=== PATIENT | female | born 1965 | race Caucasian/White ===

== ENCOUNTER 2017-07-26 22:11 | Emergency (ER) | payer OTHER ==
[2017-07-26 23:13] LABS: Urine Blood NEGATIVE (NEG); Urine Glucose NEGATIVE (NEG); Urine Protein NEGATIVE (NEG)
[2017-07-26 23:41] LABS: Absolute Lymphocytes (CBC) 2.3 K/uL (0.7-4.9); Absolute Monocytes 0.8 K/uL (0.1-1.3); Absolute Neutrophil 6.2 K/uL (1.8-8.0); Basophils % 0.5 % (0-1.3); Eosinophils % 2.7 % (0-4.4); Hematocrit 40.4 % (36.0-45.0); Lymphocytes % 23.8 % (15.3-44.8); MCH 29.9 pg (27.0-35.0); MCV 87.9 fL (80-100); MPV 11.2 fL (7.6-11.3); Monocytes % 8.1 % (3.3-12.3)
[2017-07-26 23:56] LABS: Potassium 3.8 mEq/L (3.6-5.0)
[2017-07-27 00:02] LABS: Albumin 4.4 g/dL (3.2-5.5); Bilirubin Direct 0.1 mg/dL (0-0.2); Bilirubin Total 0.6 mg/dL (0.3-1.2); Protein, Total 7.5 g/dL (6.0-8.3)
[2017-07-27] MEDS ORDERED: levoFLOXacin 500 MG TAB ONE (01:17)
[2017-07-27] MEDS ORDERED: metroNIDAZOLE 500 MG TABLET ONE (01:17)
--- NOTE | 2017-07-27 01:40 | EDPHYS ---
Physician Documentation [facility] Name: Demi Doty Age: 51 yrs Sex: Female : 1965 Arrival Date: 07/26/2017 Time: 22:15 Bed 24 Private MD: Diann Quinones ED Physician Stephen Escobar HPI: 07/27 01:42 This 51 yrs old Female presents to ER via Ambulatory with complaints of Flank tw4 Pain. 01:42 The patient presents with abdominal pain. Onset: The symptoms/episode began/occurred tw4 yesterday. The symptoms do not radiate. Associated signs and symptoms: none. The symptoms are described as dull. Modifying factors: The symptoms are alleviated by nothing, the symptoms are aggravated by nothing. The patient has not experienced similar symptoms in the past. 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 - Social history:: Smoking status: Patient/guardian denies using tobacco, never smoked. - Ebola Screening: : Patient denies travel to an Ebola-affected area in the 21 days before illness onset No symptoms or risks identified at this time. ROS: 07/27 01:42 Constitutional: Negative for fever, chills, and weight loss, Cardiovascular: Negative tw4 for chest pain, palpitations, and edema, Respiratory: Negative for shortness of breath, cough, wheezing, and pleuritic chest pain, Abdomen/GI: Negative for abdominal pain, nausea, vomiting, diarrhea, and constipation, MS/Extremity: Negative for injury and deformity, Skin: Negative for injury, rash, and discoloration, Neuro: Negative for headache, weakness, numbness, tingling, and seizure. Exam: 01:43 Constitutional: This is a well developed, well nourished patient who is awake, alert, tw4 and in no acute distress. Head/Face: Normocephalic, atraumatic. Chest/axilla: Normal chest wall appearance and motion. Nontender with no deformity. No lesions are appreciated. Cardiovascular: Regular rate and rhythm with a normal S1 and S2. No gallops, murmurs, or rubs. Normal PMI, no JVD. No pulse deficits. Respiratory: Lungs have equal breath sounds bilaterally, clear to auscultation and percussion. No rales, rhonchi or wheezes noted. No increased work of breathing, no retractions or nasal flaring. Abdomen/GI: Soft, non-tender, with normal bowel sounds. No distension or tympany. No guarding or rebound. No evidence of tenderness throughout. MS/ Extremity: Pulses equal, no cyanosis. Neurovascular intact. Full, normal range of motion. Neuro: Awake and alert, GCS 15, oriented to person, place, time, and situation. Cranial nerves II-XII grossly intact. Motor strength 5/5 in all extremities. Sensory grossly intact. Cerebellar exam normal. Normal gait. Vital Signs: 07/26 22:50 BP 147 / 84; Pulse 97; Resp 18; Temp 98.6; Pulse Ox 99% ; Weight 128.37 kg; Height 5 tl3 ft. 5 in. (165.10 cm); 07/27 00:00 BP 112 / 68; Pulse 78; Resp 20; Temp 98.1(O); Pulse Ox 100% on R/A; Pain 0/10; eb1 01:09 BP 112 / 50; Pulse 88; Resp 20; Pulse Ox 98% ; Pain 3/10; eb1 07/26 22:50 Body Mass Index 47.09 (128.37 kg, 165.10 cm) tl3 MDM: 07/26 23:26 Patient medically screened. [facility] 07/27 01:43 Data reviewed: vital signs, nurses notes. Counseling: I had a detailed discussion with [facility] the patient and/or guardian regarding: the historical points, exam findings, and any diagnostic results supporting the discharge/admit diagnosis. Special discussion: I discussed with the patient/guardian in detail that at this point there is no indication for admission to the hospital. It is understood, however, that if the symptoms persist or worsen the patient needs to return immediately for re-evaluation. 07/26 23:06 Order name: Amylase, Serum; Complete Time: 00:44 [facility] 07/27 00:44 Interpretation: Within normal limits: SONIA 44. [facility] 07/26 23:06 Order name: Basic Metabolic Panel; Complete Time: 00:44 [facility] 07/27 00:44 Interpretation: Normal except: GFR 83. tw 07/26 23:06 Order name: CBC with Diff; Complete Time: 00:44 tw4 07/27 00:44 Interpretation: Within normal limits. [facility] 07/26 23:06 Order name: Creatinine for Radiology; Complete Time: 00:44 tw 07/26 23:06 Order name: Hepatic Function; Complete Time: 00:44 tw4 07/27 00:44 Interpretation: Within normal limits. tw 07/26 23:06 Order name: Lipase; Complete Time: 00:44 tw 07/27 00:45 Interpretation: Within normal limits: LIP 22. tw 07/26 23:06 Order name: IV Saline Lock; Complete Time: 23:42 tw 07/26 23:06 Order name: Labs collected and sent; Complete Time: 23:26 [facility] 07/26 23:09 Order name: Urine Dipstick-Ancillary; Complete Time: 00:44 [facility] 07/27 00:01 Order name: CT Stone Protocol [facility] 07/26 23:06 Order name: Urine Dipstick-Ancillary (obtain specimen); Complete Time: 23:26 tw4 Administered Medications: 01:28 Drug: Flagyl 500 mg Route: PO; eb1 01:42 Follow up: Response: No adverse reaction eb1 01:28 Drug: LevaQUIN 500 mg Route: PO; eb1 01:41 Follow up: Response: No adverse reaction eb1 Disposition: 07/27/17 01:40 Discharged to Home. Impression: Diverticular disease of large intestine without perforation or abscess. - Condition is Stable. - Discharge Instructions: Diverticulitis, [id number]. - Prescriptions for Cipro 500 mg Oral Tablet - take 1 tablet by ORAL route every 12 hours for 10 days; 20 tablet. Flagyl 500 mg Oral Tablet - take 1 tablet by ORAL route every 12 hours for 7 days; 14 tablet. - Medication Reconciliation Form, Thank You Letter, Antibiotic Education, Prescription Opioid Use form. - Follow up: Diann Quinones MD; When: As needed; Reason: Recheck today's complaints, Continuance of care, Re-evaluation by your physician. - Problem is new. - Symptoms have improved. Signatures: Dispatcher [employer] Stephen Petit MD MD tw4 Whitney Wilson RN RN tl3 Amanda Georges, RN RN eb1 Corrections: (The following items were deleted from the chart) 01:55 01:40 07/27/2017 01:40 Discharged to Home. Impression: Diverticular disease of large eb1 intestine without perforation or abscess. Condition is Stable. Forms are Medication Reconciliation Form, Thank You Letter, Antibiotic Education, Prescription Opioid Use. Follow up: Na Quinones; When: As needed; Reason: Recheck today's complaints, Continuance of care, Re-evaluation by your physician. Problem is new. Symptoms have improved. tw4
--- NOTE | 2017-07-27 01:40 | ER ---
Nurse's Notes [facility] Name: Demi Doty Age: 51 yrs Sex: Female : 1965 Arrival Date: 07/26/2017 Time: 22:15 Bed 24 Private MD: Diann Quinones Diagnosis: Diverticular disease of large intestine without perforation or abscess Presentation: 07/26 22:47 Presenting complaint: Patient states: pt states that she started having abdominal tl3 cramping yesterday, kept feeling like she had to have a BM, tonight the pain is radiating to the right side, no vomiting, nausea or diarrhea, no fever. Transition of care: patient was not received from another setting of care. Onset of symptoms was July 25, 2017. Risk Assessment: Do you want to hurt yourself or someone else? Patient reports no desire to harm self or others. Initial Sepsis Screen: Does the patient meet any 2 criteria? No. Patient's initial sepsis screen is negative. Does the patient have a suspected source of infection? No. Patient's initial sepsis screen is negative. Care prior to arrival: None. 22:47 Method Of Arrival: Ambulatory tl3 22:47 Acuity: HERNAN 3 tl3 Triage Assessment: 22:50 General: Appears uncomfortable, Behavior is cooperative, appropriate for age. Pain: tl3 Pain currently is 5 out of 10 on a pain scale. [employer] [employer]: 22:50 LMP 07/09/2017 tl3 Historical: - Allergies: 22:50 NKA; tl3 - Home Meds: 22:50 Diovan Oral [Active]; Synthroid Oral [Active]; tl3 - PMHx: 22:50 Hypertension; Hypothyroidism; tl3 - Immunization history:: Adult Immunizations up to date. - Social history:: Smoking status: Patient/guardian denies using tobacco, never smoked. - Ebola Screening: : Patient denies travel to an Ebola-affected area in the 21 days before illness onset No symptoms or risks identified at this time. Screenin:46 Abuse screen: Denies threats or abuse. Denies injuries from another. Nutritional eb1 screening: No deficits noted. Tuberculosis screening: No symptoms or risk factors identified. Fall Risk None identified. Assessment: 23:42 General: Appears in no apparent distress. comfortable, obese, well groomed, well eb1 developed, well nourished. Pain: Complains of pain in abdomen Pain does not radiate. Pain currently is 4 out of 10 on a pain scale. Quality of pain is described as crampy, Pain began 1 day ago. Neuro: No deficits noted. Level of Consciousness is awake, alert, obeys commands, Oriented to person, place, time, Ship[place] Cook are equal bilaterally Moves all extremities. Full function. Cardiovascular: No deficits noted. Reports None Denies chest pain, Heart tones present Capillary refill < 3 seconds Pulses are all present. Respiratory: No deficits noted. Airway is patent Breath sounds are clear bilaterally. GI: Abdomen is round obese, Bowel sounds present X 4 quads. Abd is soft and non tender Reports bloating, cramping, Patient currently denies diarrhea, nausea, vomiting. : No deficits noted. EENT: No deficits noted. Derm: No deficits noted. Skin is intact, is healthy with good turgor, Skin is pink, warm \T\ dry. normal, Skin temperature is warm. Musculoskeletal: No deficits noted. 07/27 00:03 General: Patient states they began to feel a cramp that 'moves around my stomach'. eb1 Patient notes an increase of gas and bowel movements. . Vital Signs: 07/26 22:50 BP 147 / 84; Pulse 97; Resp 18; Temp 98.6; Pulse Ox 99% ; Weight 128.37 kg; Height 5 tl3 ft. 5 in. (165.10 cm); 07/27 00:00 BP 112 / 68; Pulse 78; Resp 20; Temp 98.1(O); Pulse Ox 100% on R/A; Pain 0/10; eb1 01:09 BP 112 / 50; Pulse 88; Resp 20; Pulse Ox 98% ; Pain 3/10; eb1 07/26 22:50 Body Mass Index 47.09 (128.37 kg, 165.10 cm) tl3 ED Course: 07/26 22:15 Patient arrived in ED. es 22:15 Diann Quinones MD is Private Physician. es 22:49 Triage completed. tl3 22:50 Arm band placed on right wrist. tl3 23:26 Stephne Escobar MD is Attending Physician. tw4 23:46 Patient has correct armband on for positive identification. Bed in low position. Call eb1 light in reach. Side rails up X 1. 23:46 No provider procedures requiring assistance completed. eb1 07/27 00:24 CT Stone Protocol In Process Unspecified. EDMS 01:39 Diann Quinones MD is Referral Physician. tw4 01:54 IV discontinued, intact, bleeding controlled, No redness/swelling at site. Pressure eb1 dressing applied. Administered Medications: 01:28 Drug: Flagyl 500 mg Route: PO; eb1 01:42 Follow up: Response: No adverse reaction eb1 01:28 Drug: LevaQUIN 500 mg Route: PO; eb1 01:41 Follow up: Response: No adverse reaction eb1 Outcome: 07/26 23:46 Condition: good eb1 07/27 01:40 Discharge ordered by . tw4 01:49 Discharged to home ambulatory, with family. eb1 01:49 Discharge instructions given to patient, Instructed on discharge instructions, medication usage, Demonstrated understanding of instructions, medications, Prescriptions given X 2. 01:55 Patient left the ED. eb1 Signatures: Dispatcher [employer] Shefali Higuera Terrence, MD MD tw4 Whitney Wilson RN RN tl3 Amanda Georges RN RN eb1
[2017-07-27 01:59] VITALS: TEMP 98.1
[2017-07-27 02:00] VITALS: BP 112/50; O2SAT 98
--- NOTE | 2017-07-27 09:37 | RAD REPORT ---
EXAM DESCRIPTION: CT - Stone Protocol - 07/27/2017 2:12 am CLINICAL HISTORY: Abdominal pain. Lower abdominal pain. Urinary frequency COMPARISON: 2016 TECHNIQUE: Computed axial tomography of the abdomen pelvis was obtained without oral or IV contrast. Lack of IV and oral contrast limits evaluation of solid organs, bowel, and vessels. Coronal reformat saritha images were obtained and reviewed. A preliminary report was generated by [employer] and reviewed prior to this dictation tissue All CT scans are performed using dose optimization technique as appropriate and may include automated exposure control or mA/KV adjustment according to patient size. FINDINGS: A 2 millimeter nonobstructing right renal calculus is present. An ureteral calculus is not noted. A bladder calculus is not present. The liver, spleen, pancreas and adrenals appear grossly normal A diverticulum stems from the proximal sigmoid colon with mild stranding within the adjacent fat. An abscess is not noted. Free air is not seen. Small umbilical hernia contains fat The appendix appears normal IMPRESSION: Small nonobstructing right renal calculus Mild sigmoid diverticulitis
== END 2017-07-27 01:55 | disposition home or self-care (01) ==
LOC: ER 22:11
DX: K57.30 Diverticulosis of large intestine without perforation or abscess without bleeding (principal); I10 Essential (primary) hypertension; E03.9 Hypothyroidism, unspecified
CPT/HCPCS: 36415; 74176; 76377; 80048; 80076; 81003; 82150; 83690; 85025; 99283

== ENCOUNTER 2019-02-01 09:00 | Emergency (ER) | payer OTHER ==
--- OUTSIDE RECORDS SUMMARY | 2019-02-01 09:22 | XMS REPORT ---
:1965 Author Organization [employer] Care Team Providers Name Role Phone Quinones, Na Provider Role Unavailable Allergies, Adverse Reactions, Alerts Substance Reaction Event Type N.K.D.A. Info Not Available Non Drug Allergy Problems Problem Type Condition Code Onset Dates Condition Status Assessment Hypertension I10 Active Problem Diverticula of colon K57.30 Active Assessment Seasonal allergic rhinitis due to J30.1 Active pollen Problem Renal calculus N20.0 Active Assessment Acute non-recurrent maxillary J01.00 Active sinusitis Problem Hematochezia K92.1 Active Problem Wheezing R06.2 Active Problem Constipation, unspecified K59.00 Active constipation type Problem Seasonal allergic rhinitis due to J30.1 Active pollen Problem Problems related to lack of Z72.820 Active adequate sleep Problem Chronic fatigue R53.82 Active Problem Mitral valve prolapse I34.1 Active Problem Acute non-recurrent maxillary J01.00 Active sinusitis Problem Paranasal sinus disease J34.9 Active Problem Snoring R06.83 Active Problem Obesity, Class III, BMI 40-49.9 E66.01 Active (morbid obesity) Problem Mild persistent asthma, unspecified J45.30 Active whether complicated Problem Hypothyroidism E03.9 Active Problem Anxiety F41.9 Active Problem Insomnia G47.00 Active Problem Vitamin D deficiency E55.9 Active Problem Irregular periods N92.6 Active Problem Varicose vein I86.8 Active Problem Hypertension I10 Active Problem Primary insomnia F51.01 Active Medications Medication Code Code Instructions Start End Status Dosage System Date Date Diovan HCT ND 05133064161 320-25 MG Active 1 tablet Orally Once a day Flonase ND 53231224686 50 MCG/ACT Active 2 spray in Nasally Once a each day nostril ProAir RespiClick [facility] 22049803237 108 (90 Base) Active 2 puffs as MCG/ACT needed Inhalation every 6 hrs Augmentin ND 08584133440 875-125 MG Active 1 tablet Orally every 12 hrs Fluticasone ND 02301803888 50 MCG/ACT Active SPRAY TWO Propionate SPRAYS IN EACH NOSTRIL ONCE DAILY Montelukast [facility] 81299117250 10 MG Orally Active 1 tablet Sodium Once a day in the evening Levothyroxine [facility] 14666017602 175 MCG Active TAKE ONE Sodium TABLET BY MOUTH DAILY Adipex-P [facility] 69209493650 37.5 MG Orally Active 1 capsule Once a day Cetirizine HCl [facility] 18372323110 10 MG Orally Active 1 tablet Once a day Results No Known Results Summary Purpose [employer] Submission
--- OUTSIDE RECORDS SUMMARY | 2019-02-01 09:23 | XMS REPORT ---
:1965 Author Organization [employer] Care Team Providers Name Role Phone Quinones, Na Provider Role Unavailable Allergies No Known Allergies Problems Problem Type Condition Code Onset Dates Condition Status Problem Hematochezia K92.1 Active Problem Wheezing R06.2 Active Problem Constipation, unspecified K59.00 Active constipation type Problem Seasonal allergic rhinitis due to J30.1 Active pollen Problem Chronic fatigue R53.82 Active Problem Problems related to lack of Z72.820 Active adequate sleep Problem Mitral valve prolapse I34.1 Active Problem [...] I86.8 Active Problem Hypertension I10 Active Problem Diverticula of colon K57.30 Active Assessment Hypertension I10 Active Problem Primary insomnia F51.01 Active Problem Renal calculus N20.0 Active Medications Medication Code System Code Instructions Start Date End Date Status Dosage Diovan HCT [facility] 20121716053 320-25 MG Orally Active 1 tablet Once a day Results No Known Results Summary Purpose [employer] Submission
[2019-02-01] MEDS ORDERED: NA CHLORIDE 0.9% 1,000 ML ONE (10:05)
[2019-02-01 10:14] LABS: Absolute Lymphocytes (CBC) 1.6 K/uL (0.7-4.9); Basophils % 0.5 % (0-1.3); Hematocrit 43.4 % (36.0-45.0); Lymphocytes % 24.7 % (15.3-44.8)
[2019-02-01 10:21] LABS: Specific Gravity 1.015 (1.005-1.030)
[2019-02-01 10:36] LABS: ALT/SGPT 47 U/L (12-78); AST/SGOT 27 U/L (15-37); Alkaline Phosphatase 90 U/L (45-117); BUN Blood Urea Nitrogen 15 mg/dL (7-18); Bicarbonate 30 mmol/L (21-32); Bilirubin Direct 0.1 mg/dL (0-0.2); Bilirubin Total 0.9 mg/dL (0.2-1.0); Glucose Level 113 mg/dL (74-106); Lipase 125 U/L (73-393); Potassium 3.8 mmol/L (3.5-5.1); Protein, Total 7.4 g/dL (6.4-8.2); Sodium Level 138 mmol/L (136-145)
--- NOTE | 2019-02-01 11:15 | RAD REPORT ---
EXAM DESCRIPTION: CTAbdomen Pelvis W Contrast - 02/01/2019 10:55 am CLINICAL HISTORY: Abdominal pain. ABD PAIN COMPARISON: No comparisons TECHNIQUE: Biphasic CT imaging of the abdomen and pelvis was performed with 100 ml non-ionic IV cont rast. All CT scans are performed using dose optimization technique as appropriate and may include automated exposure control or mA/KV adjustment according to patient size. FINDINGS: The lung bases are clear. The liver demonstrates mild fatty infiltration. The spleen, pancreas, adrenal glands and kidneys are within normal limits. No bowel obstruction, free air, free fluid or abscess. Mild sigmoid diverticulosis without diverticul itis. The appendix is normal. No evidence of significant lymphadenopathy. No suspicious bony findings. IMPRESSION: No acute intra-abdominal or pelvic finding.
[2019-02-01 11:23] LABS: Blood Morphology Comment NOT SEEN (NOT SEEN); Platelet Estimate ADEQ
[2019-02-01 11:31] LABS: Urine Bacteria NONE SEEN /HPF (<20); Urine Culture Reflex Order NOT NEEDED; Urine RBC NONE SEEN /HPF (NONE SEEN)
--- NOTE | 2019-02-01 11:39 | EDPHYS ---
Physician Documentation [facility] Name: Demi Doty Age: 53 yrs Sex: Female : 1965 Arrival Date: 02/01/2019 Time: 09:02 Bed 17 Private MD: ED Physician Luciano Pope HPI: 02/01 10:07 This 53 yrs old Female presents to ER via Ambulatory with complaints of pm1 Bloody Stools, Diarrhea, Abdominal Pain. 10:07 The patient presents with abdominal pain. pm1 10:07 Onset: The symptoms/episode began/occurred 2 day(s) ago. Associated signs and symptoms: pm1 Pertinent positives: diarrhea, right flank pain, bright red blood with mucous with wiping once today, Pertinent negatives: nausea and vomiting, chest pain, constipation, dysuria, fever, shortness of breath. The symptoms are described as crampy. Modifying factors: The symptoms are alleviated by nothing, the symptoms are aggravated by nothing. Severity of pain: in the emergency department the pain is actually worse. Feels like prior diverticulitis. Historical: - Allergies: 09:43 NKA; sv - PMHx: 09:43 Hypertension; Hypothyroidism; Diverticulitis; sv - PSHx: 09:43 ; sv - Immunization history:: Adult Immunizations up to date, Flu vaccine is up to date. - Social history:: Smoking status: Patient/guardian denies using tobacco. - Ebola Screening: : No symptoms or risks identified at this time. ROS: 10:07 Constitutional: Negative for fever, chills, and weight loss, Eyes: Negative for injury, pm1 pain, redness, and discharge, ENT: Negative for injury, pain, and discharge, Neck: Negative for injury, pain, and swelling, Cardiovascular: Negative for chest pain, palpitations, and edema, Respiratory: Negative for shortness of breath, cough, wheezing, and pleuritic chest pain. 10:07 : Negative for injury, bleeding, discharge, and swelling, MS/Extremity: Negative for injury and deformity, Skin: Negative for injury, rash, and discoloration, Neuro: Negative for headache, weakness, numbness, tingling, and seizure. 10:07 Abdomen/GI: Positive for abdominal pain, diarrhea, Negative for nausea and vomiting. 10:07 Back: Positive for flank pain, on the right. Exam: 10:07 Constitutional: This is a well developed, well nourished patient who is awake, alert, pm1 and in no acute distress. Head/Face: Normocephalic, atraumatic. Eyes: Pupils equal round and reactive to light, extra-ocular motions intact. Lids and lashes normal. Conjunctiva and sclera are non-icteric and not injected. Cornea within normal limits. Periorbital areas with no swelling, redness, or edema. ENT: Nares patent. No nasal discharge, no septal abnormalities noted. Tympanic membranes are normal and external auditory canals are clear. Oropharynx with no redness, swelling, or masses, exudates, or evidence of obstruction, uvula midline. Mucous membranes moist. Neck: Trachea midline, no thyromegaly or masses palpated, and no cervical lymphadenopathy. Supple, full range of motion without nuchal rigidity, or vertebral point tenderness. No Meningismus. Chest/axilla: Normal chest wall appearance and motion. Nontender with no deformity. No lesions are appreciated. Cardiovascular: Regular rate and rhythm with a normal S1 and S2. No gallops, murmurs, or rubs. Normal PMI, no JVD. No pulse deficits. Respiratory: Lungs have equal breath sounds bilaterally, clear to auscultation and percussion. No rales, rhonchi or wheezes noted. No increased work of breathing, no retractions or nasal flaring. 10:07 Back: No spinal tenderness. No costovertebral tenderness. Full range of motion. Skin: Warm, dry with normal turgor. Normal color with no rashes, no lesions, and no evidence of cellulitis. MS/ Extremity: Pulses equal, no cyanosis. Neurovascular intact. Full, normal range of motion. 10:07 Abdomen/GI: Inspection: obese Bowel sounds: normal, Palpation: abdomen is soft and non-tender, in all quadrants, mass, is not appreciated, rebound tenderness, is not appreciated, Rectal exam: Patient refused rectal examination. 10:07 Neuro: Orientation: is normal, Motor: is normal, moves all fours. Vital Signs: 09:44 BP 148 / 99; Pulse 81; Resp 20; Temp 98.2; Pulse Ox 98% ; Weight 136.08 kg; Height 5 sv ft. 4 in. (162.56 cm); Pain 5/10; 10:30 BP 149 / 98; Pulse 72; Resp 18; Pulse Ox 99% ; sv 11:34 BP 123 / 95; Pulse 74; Resp 16; Pulse Ox 100% ; sv 09:44 Body Mass Index 51.49 (136.08 kg, 162.56 cm) sv MDM: 09:47 Patient medically screened. pm1 11:38 Data reviewed: vital signs. Data interpreted: Pulse oximetry: on room air is 100 %. pm1 Interpretation: normal. Counseling: I had a detailed discussion with the patient and/or guardian regarding: the historical points, exam findings, and any diagnostic results supporting the discharge/admit diagnosis, lab results, radiology results, the need for outpatient follow up, to return to the emergency department if symptoms worsen or persist or if there are any questions or concerns that arise at home. 12:18 ED course: unable to provide a stool sample. pm1 02/01 09:47 Order name: Basic Metabolic Panel; Complete Time: 10:57 pm1 02/01 09:47 Order name: CBC with Diff; Complete Time: 11:23 pm1 12 09:47 Order name: Creatinine for Radiology; Complete Time: 10:57 pm1 02/01 09:47 Order name: Hepatic Function; Complete Time: 10:57 pm1 02/01 09:47 Order name: Lipase; Complete Time: 10:57 pm1 02/01 10:01 Order name: UA MICROSCOPIC; Complete Time: 11:37 sv 02/01 09:47 Order name: IV Saline Lock; Complete Time: 10:00 pm1 12 09:47 Order name: Labs collected and sent; Complete Time: 10:00 pm1 02/01 09:47 Order name: CT Abd/Pelvis - IV Contrast Only; Complete Time: 11:17 pm1 12 09:47 Order name: Urine Dipstick-Ancillary (obtain specimen); Complete Time: 10:01 pm1 02/01 10:14 Order name: Test, Urine EDMS 02/01 11:23 Order name: Manual Differential; Complete Time: 11:23 EDMS 02/01 09:47 Order name: Urine Test (obtain specimen); Complete Time: 10:01 pm1 Administered Medications: 10:06 Drug: NS 0.9% 1000 ml Route: IV; Rate: 1000 ml; Site: left forearm; sv 11:15 Follow up: Response: No adverse reaction; IV Status: Completed infusion; IV Intake: sv 1000ml 12:00 Drug: Bentyl 20 mg Route: PO; ss 12:14 Follow up: Response: Medication administered at discharge. Disposition: 14:11 Co-signature as Attending Physician, Luciano Pope MD. rn Disposition: 02/01/19 11:38 Discharged to Home. Impression: Diarrhea, unspecified, Unspecified abdominal pain. - Condition is Stable. - Discharge Instructions: Abdominal Pain, Adult, Food Choices to Help Relieve Diarrhea, Adult, Diarrhea, Adult. - Prescriptions for Bentyl 20 mg Oral Tablet - take 1 tablet by ORAL route every 6 hours As needed; 20 tablet. - Work release form, Medication Reconciliation Form, Thank You Letter, Antibiotic Education, Prescription Opioid Use form. - Follow up: Emergency Department; When: As needed; Reason: Worsening of condition. Follow up: Private Physician; When: 2 - 3 days; Reason: Recheck today's complaints, Continuance of care, Re-evaluation by your physician. - Problem is new. - Symptoms have improved. Signatures: Dispatcher [employer] Aleida Cassidy RN RN sv Nieto, Roman, MD MD rn Smirch, Shelby, RN RN ss Marinas, Patrick, JACOB [employer] pm1 Corrections: (The following items were deleted from the chart) 12:22 11:38 02/01/2019 11:38 Discharged to Home. Impression: Diarrhea, unspecified; sv Unspecified abdominal pain. Condition is Stable. Forms are Medication Reconciliation Form, Thank You Letter, Antibiotic Education, Prescription Opioid Use. Follow up: Emergency Department; When: As needed; Reason: Worsening of condition. Follow up: Private Physician; When: 2 - 3 days; Reason: Recheck today's complaints, Continuance of care, Re-evaluation by your physician. Problem is new. Symptoms have improved. pm1
--- NOTE | 2019-02-01 11:39 | ER ---
Nurse's Notes [facility] Name: Demi Doty Age: 53 yrs Sex: Female : 1965 Arrival Date: 02/01/2019 Time: 09:02 Bed 17 Private MD: Diagnosis: Diarrhea, unspecified;Unspecified abdominal pain Presentation: 02/01 09:28 Presenting complaint: Patient states: lower abd pain/cramping, diarrhea dark green sv stool, right flank pain since Friday. Stated she went to get her well woman exam and they told her she had blood in her stool. Denies fever. Transition of care: patient was not received from another setting of care. Onset of symptoms was January 29, 2019. Risk Assessment: Do you want to hurt yourself or someone else? Patient reports no desire to harm self or others. Initial Sepsis Screen: Does the patient meet any 2 criteria? No. Patient's initial sepsis screen is negative. Does the patient have a suspected source of infection? No. Patient's initial sepsis screen is negative. Care prior to arrival: None. 09:28 Method Of Arrival: Ambulatory sv 09:28 Acuity: HERNAN 3 sv Triage Assessment: :28 General: Appears in no apparent distress. uncomfortable, well groomed, well developed, sv Behavior is calm, cooperative, appropriate for age. Pain: Complains of pain in right lower quadrant and left lower quadrant Pain currently is 5 out of 10 on a pain scale. Quality of pain is described as crampy, Pain began friday Is intermittent. Neuro: Level of Consciousness is awake, alert, obeys commands, Oriented to person, place, time, situation, Moves all extremities. Full function Gait is steady, Speech is normal. Cardiovascular: Patient's skin is warm and dry. Respiratory: Airway is patent Respiratory effort is even, unlabored, Respiratory pattern is regular, symmetrical. GI: Abdomen is obese, Reports lower abdominal pain, diarrhea. Derm: Skin is pink, warm \T\ dry. Musculoskeletal: Range of motion: intact in all extremities. Historical: - Allergies: 09:43 NKA; sv - PMHx: :43 Hypertension; Hypothyroidism; Diverticulitis; sv - PSHx: :43 ; sv - Immunization history:: Adult Immunizations up to date, Flu vaccine is up to date. - Social history:: Smoking status: Patient/guardian denies using tobacco. - Ebola Screening: : No symptoms or risks identified at this time. Screenin:30 Abuse screen: Denies threats or abuse. Denies injuries from another. Nutritional sv screening: No deficits noted. Tuberculosis screening: No symptoms or risk factors identified. Fall Risk None identified. Assessment: 10:06 Reassessment: Patient appears in no apparent distress at this time. No changes from sv previously documented assessment. Patient and/or family updated on plan of care and expected duration. Pain level reassessed. Patient is alert, oriented x 3, equal unlabored respirations, skin warm/dry/pink. 11:51 Reassessment: discharge pending stool sample. Pt reports she would like to see if she ss is able to provide a stool sample prior to discharge home. Angelo Arredondo NP states that he does want to try to obtain stool specimen at this time and if patient is able to provide, he will put in the orders to send off. 12:20 Reassessment: Patient appears in no apparent distress at this time. No changes from sv previously documented assessment. Patient and/or family updated on plan of care and expected duration. Pain level reassessed. Patient is alert, oriented x 3, equal unlabored respirations, skin warm/dry/pink. Vital Signs: 09:44 BP 148 / 99; Pulse 81; Resp 20; Temp 98.2; Pulse Ox 98% ; Weight 136.08 kg; Height 5 sv ft. 4 in. (162.56 cm); Pain 5/10; 10:30 BP 149 / 98; Pulse 72; Resp 18; Pulse Ox 99% ; sv 11:34 BP 123 / 95; Pulse 74; Resp 16; Pulse Ox 100% ; sv 09:44 Body Mass Index 51.49 (136.08 kg, 162.56 cm) sv ED Course: 09:02 Patient arrived in ED. as 09:28 Arm band placed on Patient placed in an exam room, on a stretcher. sv 09:30 Patient has correct armband on for positive identification. Bed in low position. Call sv light in reach. Pulse ox on. NIBP on. Door closed. Head of bed elevated. 09:33 [facility] Salinas [facility] pm1 09:33 Luciano Pope MD is Attending Physician. pm1 09:41 Aleida Bajwa, RN is Primary Nurse. sv 09:43 Triage completed. sv 09:55 Inserted saline lock: 22 gauge in right forearm, using aseptic technique. ,using sv aseptic technique. diffusics Blood collected. 10:52 CT completed. Patient tolerated procedure well. Patient moved to CT via wheelchair. Patient moved back from CT. 10:57 CT Abd/Pelvis - IV Contrast Only In Process Unspecified. EDMS 12:21 No provider procedures requiring assistance completed. IV discontinued, intact, sv bleeding controlled, No redness/swelling at site. Pressure dressing applied. Administered Medications: 10:06 Drug: NS 0.9% 1000 ml Route: IV; Rate: 1000 ml; Site: left forearm; sv 11:15 Follow up: Response: No adverse reaction; IV Status: Completed infusion; IV Intake: sv 1000ml 12:00 Drug: Bentyl 20 mg Route: PO; ss 12:14 Follow up: Response: Medication administered at discharge. ss Intake: 11:15 IV: 1000ml; Total: 1000ml. sv Outcome: 11:38 Discharge ordered by MD. pm1 12:21 Discharged to home ambulatory, with family. sv 12:21 Condition: stable 12:21 Discharge instructions given to patient, Instructed on discharge instructions, follow up and referral plans. medication usage, Demonstrated understanding of instructions, follow-up care, medications, Prescriptions given X 1. 12:22 Patient left the ED. sv Signatures: Dispatcher [employer] EDRI Aleida Bajwa, Ada Hernandez RN, Shelby, RN RN ss Warren, Shannon sw Marinas, Patrick, JACOB [employer] HELPER pm1
[2019-02-01] MEDS ORDERED: DICYCLOMINE HCL 10 MG CAP ONE (11:48)
[2019-02-01 12:37] VITALS: TEMP 98.2
[2019-02-01 12:39] VITALS: BP 123/95; O2SAT 100
== END 2019-02-01 12:22 | disposition home or self-care (01) ==
LOC: ER 09:00
DX: R19.7 Diarrhea, unspecified (principal); R10.9 Unspecified abdominal pain
CPT/HCPCS: 85025; 80048; 36415; 81025; 80076; 81015; 83690; 74177; 96360; 99284; Q9967; J7030